=== PATIENT | male | born 1970 | race American Indian/Alaskan Native ===

== ENCOUNTER 2017-03-01 13:42 | Emergency (ER) | payer SELFPAY ==
[2017-03-01 13:43] VITALS: BMI 27.1
[2017-03-01 13:56] VITALS: BP 125/86; PULSE 66; RESP 20; TEMP 98; O2SAT 100
--- NOTE | 2017-03-01 14:38 | RAD ---
PROCEDURE: Radiographs of the Right Shoulder HISTORY: pain COMPARISON: None available FINDINGS: BONES: No acute displaced fracture. The distal clavicle and underlying ribs appear intact. JOINTS: No acute dislocation. SOFT TISSUES: Soft tissues appear unremarkable. No evidence of radiopaque foreign body. IMPRESSION: No acute displaced fracture or dislocation evident. If symptoms persist or if there is continued clinical concern, x-ray follow-up in 7-10 days should be considered.
--- NOTE | 2017-03-01 15:05 | C.PDOC ---
History Of Present Illness The patient, a 46 y/o male, presents to the ED for evaluation of right shoulder pain which began a few months ago. Patient states he went skiing a few months ago when he fell and dislocated his right shoulder. Patient states his friend was able to reduce the dislocation. However, since the incident patient has had persistent pain to the area that is worse at night and with movement. Otherwise , patient denies back pain, extremity numbness/weakness, or any new injuries. Time Seen by Provider: 03/01/17 14:12 Chief Complaint (Nursing): Upper Extremity Problem/Injury History Per: Patient History/Exam Limitations: no limitations Onset/Duration Of Symptoms: Other (months ) Current Symptoms Are (Timing): Still Present Quality: "Pain" Exacerbating Factor(s): Movement, Worse At Night Additional History Per: Patient Past Medical History Reviewed: Historical Data, Nursing Documentation, Vital Signs Vital Signs: Last Vital Signs Temp 98.0 F 03/01/17 13:56 Pulse 66 03/01/17 13:56 Resp 20 03/01/17 13:56 BP 125/86 03/01/17 13:56 Pulse Ox 100 03/01/17 15:21 - Medical History PMH: HTN (STATED PMD TOOK HIM OFF MEDS FOR HTN) Surgical History: No Surg Hx Family History: States: Unknown Family Hx - Social History Hx Alcohol Use: Yes Hx Substance Use: No - Immunization History Hx Tetanus Toxoid Vaccination: No Hx Influenza Vaccination: No Review Of Systems Except As Marked, All Systems Reviewed And Found Negative. Musculoskeletal: Positive for: Shoulder Pain (right ). Negative for: Back Pain Neurological: Negative for: Weakness, Numbness Physical Exam - Physical Exam Appears: Non-toxic, No Acute Distress Skin: Normal Color, Warm, Dry Head: Atraumatic, Normacephalic Eye(s): bilateral: Normal Inspection Oral Mucosa: Moist Neck: Normal ROM, No Midline Cervical Tenderness, Supple Chest: Symmetrical, No Deformity, No Tenderness Cardiovascular: Rhythm Regular, No Murmur Respiratory: Normal Breath Sounds, No Rales, No Rhonchi, No Wheezing Back: Normal Inspection, No Vertebral Tenderness, No Paraspinal Tenderness Extremity: No Normal ROM (decreased abduction secondary to pain ), Tenderness ( to posterior shoulder on palpation ), Capillary Refill (less than 2 seconds ), No Swelling, Other (+sunken region to posterior shoulder ) Pulses: Left Radial: Normal, Right Radial: Normal Neurological/Psych: Oriented x3, Normal Speech, Normal Cognition Gait: Steady ED Course And Treatment O2 Sat by Pulse Oximetry: 100 (on RA) Pulse Ox Interpretation: Normal - Other Rad Right Shoulder XR X-Ray: Interpreted by Me, Viewed By Me, Read By Radiologist Interpretation: Accession No. : [id number]. Patient Name / ID : MARY KAPLAN / [id number]. Exam Date : 03/01/2017 14:13:54 ( Approved ). Study Comment : Sex / Age : M / 46Y. Creator : Vanessa Coley MD. Dictator : Vanessa Coley MD. Senior Research Analyst : Miter Grinder Operator : Vanessa Coley MD. Approver2 : Report Date : 03/01/2017 14:36:52. My Comment : . PROCEDURE: Radiographs of the Right Shoulder. HISTORY: pain. COMPARISON: None available. FINDINGS: BONES: No acute displaced fracture. The distal clavicle and underlying ribs appear intact. JOINTS: No acute dislocation. SOFT TISSUES: Soft tissues appear unremarkable. No evidence of radiopaque foreign body. IMPRESSION: No acute displaced fracture or dislocation evident. If symptoms persist or if there is continued clinical concern, x-ray follow-up in 7-10 days should be considered. Progress Note: Right shoulder XR ordered and reviewed. On reassessment, patient is resting comfortably and is showing no signs of distress. Patient is stable for discharge from the ED and is advised to follow up with orthopedic care within 1-2 days for further evaluation. Disposition - Disposition Referrals: [facility] [Outside] Disposition: HOME/ ROUTINE Disposition Time: 15:20 Condition: STABLE Additional Instructions: Follow up with PMD within 1-2 days. Return to ED if feel worse. Prescriptions: Ibuprofen [Motrin Tab] 600 mg PO Q8 #30 tab Instructions: Rotator Cuff Injury (ED) - Clinical Impression Clinical Impression: Shoulder injury - PA / MOLDING LINE OPERATOR / Resident Statement MD/DO has reviewed & agrees with the documentation as recorded. - Scribe Statement The provider has reviewed the documentation as recorded by the Scribe (Sindhu Woods) All medical record entries made by the Scribe were at my direction and personally dictated by me. I have reviewed the chart and agree that the record accurately reflects my personal performance of the history, physical exam, medical decision making, and the department course for this patient. I have also personally directed, reviewed, and agree with the discharge instructions and disposition.
== END 2017-03-01 15:24 | disposition home or self-care (01) ==
LOC: C.ER 13:42
DX: S49.91XA Unspecified injury of right shoulder and upper arm, initial encounter (principal); V00.328A Other snow-ski accident, initial encounter; Y93.23 Activity, snow (alpine) (downhill) skiing, snowboarding, sledding, tobogganing and snow tubing; Y92.89 Other specified places as the place of occurrence of the external cause